=== PATIENT | male | born 1975 | race African-American/Black ===

== ENCOUNTER 2017-10-06 11:51 | Emergency (ER) | payer OTHER ==
--- NOTE | 2017-10-06 12:19 | EDM.PDOC ---
ED HPI GENERAL MEDICAL PROBLEM - General Chief Complaint: Lower Extremity Injury/Pain Stated Complaint: RT KNEE Time Seen by Provider: 10/06/17 12:17 Source of Information: Reports: Patient History Limitations: Reports: No Limitations - History of Present Illness INITIAL COMMENTS - FREE TEXT/NARRATIVE: HISTORY AND PHYSICAL: History of present illness: Patient is a 42-year-old male who presents to the emergency room with complaints of right anterior knee pain. He states while at work he had hit the knee on a corner of a wall, which resulted in some soft tissue swelling and pain with palpation. He bought a knee brace help alleviate some of the discomfort Denies any numbness or tingling to his lower extremity. Review of systems: As per history of present illness and below otherwise all systems reviewed and negative. Past medical history: As per history of present illness and as reviewed below otherwise noncontributory. Surgical history: As per history of present illness and as reviewed below otherwise noncontributory. Social history: No reported history of drug or alcohol abuse. Family history: As per history of present illness and as reviewed below otherwise noncontributory. Physical exam: General: Well-developed and well-nourished 42-year-old male. Alert and oriented. Nontoxic appearing and in no acute distress. HEENT: Atraumatic, normocephalic, pupils equal and reactive bilaterally, negative for conjunctival pallor or scleral icterus, mucous membranes moist, throat clear, neck supple, nontender, trachea midline. No drooling or trismus noted. No meningeal signs Lungs: Clear to auscultation, breath sounds equal bilaterally, chest nontender. Heart: S1S2, regular rate and rhythm without overt murmur Abdomen: Soft, nondistended, nontender. Negative for masses or hepatosplenomegaly. Negative for costovertebral tenderness. Pelvis: Stable nontender. Genitourinary: Deferred. Rectal: Deferred. Skin: Soft tissue swelling noted to the right anterior knee- there is a healing superficial abrasion noted at this site as well. Otherwise his skin is intact, warm, dry. No lesions or rashes noted. Extremities: Moves all extremities per self, strong pedal pulses bilaterally. + CMS. negative for cords or calf pain. Neurovascular unremarkable. Neuro: Awake, alert, oriented. Cranial nerves II through XII unremarkable. Cerebellum unremarkable. Motor and sensory unremarkable throughout. Exam nonfocal. Notes: Xray is within normal limits, some mild degenerative changes noted. We discussed the limitations of x-ray which is available to us here in the emergency room. He voices understanding. I will have him continue to use his knee brace and provide him with crutches. Encouraged him to follow-up with the orthopedic provider in the next 1-2 days for further evaluation and management if his symptoms do not improve. He voices understanding and is agreeable to plan of care. He denies any further questions at this time. Diagnostics: Xray Therapeutics: Crutches, ice Impression: Right knee injury Plan: 1. Please use the brace and crutches as directed. Rest, ice, and elevate the extremity. 2. Tylenol and/or ibuprofen as needed for pain management 3. Follow up with your primary care provider or Orthopedic physician within the next week, or sooner as needed. Return to the ED as needed and as discussed. Definitive disposition and diagnosis as appropriate pending reevaluation and review of above. Duration: Day(s): Location: Reports: Lower Extremity, Right - Related Data Allergies Allergy/AdvReac Type Severity Reaction Status Date / Time No Known Allergies Allergy Verified 10/06/17 12:21 Home Meds: Home Meds Multivit-Min/Iron Fum/Folic AC [Nxsjl-Emoidod-Wyandeut Tablet] 1 tab PO [History] amLODIPine Besylate [Amlodipine Besylate] 5 mg PO 10/06/17 [History] Review of Systems - Review of Systems Review Of Systems: ROS reveals no pertinent complaints other than HPI. ED EXAM, GENERAL - Physical Exam Exam: See Below (See dictation) Course - Vital Signs Last Recorded V/S: Last Vital Signs Temp 97.6 F 10/06/17 12:05 Pulse 84 10/06/17 12:05 Resp 18 10/06/17 12:05 BP 161/115 H 10/06/17 12:05 Pulse Ox 98 10/06/17 12:05 - Orders/Labs/Meds Orders: Active Orders 24 hr Category Date Time Status Knee 3V Rt [CR] Stat Exams 10/06/17 12:19 Ordered DME for Discharge [COMM] Stat Oth 10/06/17 12:57 Ordered Departure - Departure Time of Disposition: 12:58 Disposition: Home, Self-Care 01 Clinical Impression: Right knee injury Qualifiers: Encounter type: initial encounter Qualified Code(s): S89.91XA - Unspecified injury of right lower leg, initial encounter - Discharge Information Referrals: PCP,Not In Area [Primary Care Provider] - Forms: ED Department Discharge Additional Instructions: The following information is given to patients seen in the emergency department who are being discharged to home. This information is to outline your options for follow-up care. We provide all patients seen in our emergency department with a follow-up referral. The need for follow-up, as well as the timing and circumstances, are variable depending upon the specifics of your emergency department visit. If you don't have a primary care physician on staff, we will provide you with a referral. We always advise you to contact your personal physician following an emergency department visit to inform them of the circumstance of the visit and for follow-up with them and/or the need for any referrals to a consulting specialist. The emergency department will also refer you to a specialist when appropriate. This referral assures that you have the opportunity for follow-up care with a specialist. All of these measure are taken in an effort to provide you with optimal care, which includes your follow-up. Under all circumstances we always encourage you to contact your private physician who remains a resource for coordinating your care. When calling for follow-up care, please make the office aware that this follow-up is from your recent emergency room visit. If for any reason you are refused follow-up, please contact the [facility] Emergency Department at and asked to speak to the emergency department charge nurse. [facility] [address] [place] [id number] [facility] [address] [place] [address], [address] [place] [address] 1. Please use the brace and crutches as directed. Rest, ice, and elevate the extremity. 2. Tylenol and/or ibuprofen as needed for pain management 3. Follow up with your primary care provider or Orthopedic physician within the next week, or sooner as needed. Return to the ED as needed and as discussed. - My Orders Last 24 Hours: My Active Orders 10/06/17 12:19 Knee 3V Rt [CR] Stat 10/06/17 12:57 DME for Discharge [COMM] Stat - Assessment/Plan Last 24 Hours: My Active Orders 10/06/17 12:19 Knee 3V Rt [CR] Stat 10/06/17 12:57 DME for Discharge [COMM] Stat
--- NOTE | 2017-10-06 13:01 | CR ---
EXAMINATION: Right knee HISTORY: Pain COMPARISON: None TECHNIQUE: 3 views FINDINGS/IMPRESSION: There is no acute osseous abnormality, dislocation, or fracture. Bone mineraliza tion and joint spaces are grossly preserved. Mild soft tissue swelling adjacent to the right knee wit hout an underlying joint effusion.
== END 2017-10-06 13:07 | disposition home or self-care (01) ==
LOC: MW.ED 11:51
DX: S80.211A Abrasion, right knee, initial encounter (principal); W22.01XA Walked into wall, initial encounter; Y99.0 Civilian activity done for income or pay
CPT/HCPCS: 73562-26-RT; 73562-RT; 99283